=== PATIENT | male | born 1975 | race Two or more races ===

== ENCOUNTER 2025-01-05 09:10 | Day surgery (SDC) | payer MEDICAID, SELFPAY ==
[2025-01-02 08:56] VITALS: BMI 30.4
--- NOTE | 2025-01-02 09:10 | EKG_ITS ---
[facility] Test Date: 2025-01-02 Pat Name: EVENS HICKMAN Department: Room: - Gender: Male [employer]: : 1975 Requested By: Kevan Cline Order Number: [id number] Reading MD: Kevan Cline Measurements Intervals [place] Rate: 54 P: 59 [place]: 142 QRS: 59 QRSD: 92 T: 47 QT: 399 QTc: 378 Interpretive Statements SINUS BRADYCARDIA POSSIBLE LEFT ATRIAL ENLARGEMENT [-0.1mV P WAVE IN V1/V2] No previous ECG available for comparison /store/S0/[id number]/ecg/[id number].pdf
[2025-01-02 10:35] LABS: Basophils # (Auto) 0.1 Thou/mm3 (0.0-0.2); Basophils % (Auto) 1 % (0-2.5); Eosinophils # (Auto) 0.2 Thou/mm3 (0.0-0.5); Eosinophils % (Auto) 2 % (0-10); Hematocrit 44.1 % (41.0-53.0); Immature Granulocytes % (Auto) 1 % (0-0); Immature Granulocytes Auto 0.04 Thou/mm3 (0.00-0.00); Lymphocytes # (Auto) 1.9 Thou/mm3 (1.0-4.8); Lymphocytes % (Auto) 24 % (10-50); Mean Corpuscular Hemoglobin 29.6 pg (25.0-35.0); Mean Corpuscular Volume 87 fL (80-100); Monocytes # (Auto) 0.5 Thou/mm3 (0.0-0.8); Monocytes % (Auto) 6 % (0-12); Neutrophils # (Auto) 5.1 Thou/mm3 (1.8-7.7); Neutrophils % (Auto) 66 % (37-80); Nucleated Red Blood Cell % 0 /100 WBC (0); Platelet Count 266 Thou/mm3 (140-440); RDW Standard Deviation 40.8 fL (35.1-43.9); Red Blood Count 5.06 Miln/mm3 (4.50-5.90); White Blood Count 7.8 Thou/mm3 (3.8-10.6)
[2025-01-02 10:43] LABS: INR 0.9 (0.9-1.3); Partial Thromboplastin Time 26.5 Seconds (22.0-36.0); Prothrombin Time 10.3 Seconds (9.0-12.2)
[2025-01-02 10:59] LABS: Alanine Aminotransferase 19 U/L (10-49); Albumin, Serum 4.6 gm/dL (3.5-5.0); Albumin/Globulin Ratio 1.9 (1.2-2.2); Alkaline Phosphatase 97 U/L (46-116); Anion Gap 8 (7-16); Aspartate Amino Transferase 17 U/L (0-34); BUN/Creatinine Ratio 16 Ratio (12-20); Bilirubin,Total 0.7 mg/dL (0.3-1.2); Blood Urea Nitrogen 16 mg/dL (9-23); Carbon Dioxide 27.2 mMol/L (20.0-31.0); Chloride 104 mMol/L (98-107); Globulin 2.4 gm/dL (2.3-3.5); Glucose 106 mg/dL (74-106); Osmolality,Calculated 278 (275-295); Potassium 4.4 mMol/L (3.4-5.1); Sodium 139 mMol/L (136-145); eGFR > 60 See Note
--- NOTE | 2025-01-04 18:35 | ESHP_ITS ---
RE: EVENS HICKMAN : 1975 DATE OF ADMISSION: 01/05/2025 DATE OF SURGERY: 01/05/2025 HISTORY OF PRESENT ILLNESS: This patient was seen by me from the [facility]. He is a 49-year-old male who was seen because of lump over the left side of the back. The patient has had this for the past few years, but it is becoming painful and is tender to touch. The patient is otherwise in good health, but he does have hypertension. PAST SURGICAL HISTORY: The patient's past surgery consisted of none PHYSICAL EXAMINATION: GENERAL: Well-built, well-nourished male who appeared to be in his stated age and he was obese. He is about 17 inches tall, weighing 215 pounds with BMI of 30.5. VITAL SIGNS: Reveal temperature of 98.1, pulse 81, BP 163/76. HEENT: Head was normal. Eyes, ear, nose, throat were normal. Examination of the ears were normal. Neck normal. Throat normal. Thyroid normal. LUNGS: Revealed normal breath sounds on both sides. HEART: Sinus rhythm. BACK: Examination of his back on the left side and the lower area revealed a soft tissue mass measuring about 5 cm in diameter. This seems to be eloquent in the subcutaneous tissue and it is tender on palpation. IMPRESSION: 1. Soft tissue mass, left flank, possibly a lipoma. 2. Hypertension. COURSE OF ACTION: Advised the patient to undergo excision of this mass under sedation with monitored anesthesia in the hospital. The risks of the procedure including hematoma or wound infection of the suture line, etc., were explained to the patient and he is agreeable. DT: 17:45:56 TT: 18:22:00 Ref: [id number] - TID: [id number] TARIQ
[2025-01-05 09:43] VITALS: BP 166/95; PULSE 80; RESP 12; TEMP 37.1; O2SAT 98; BMI 30.2
[2025-01-05] MEDS: RINGERS LACTATED 1000 ML 1,000 ML 20 ML IV (09:50)
--- NOTE | 2025-01-05 10:20 | SUR.PREOP ---
Patient expressed gratitude for prayer before their procedure.
[2025-01-05 12:07] VITALS: BP 128/66; PULSE 74; RESP 16; TEMP 36.3; O2SAT 98
--- NOTE | 2025-01-05 12:07 | SUR.PHASEII ---
pt received from OR in recovery bay 4. pt awake and alert, breathing unlabored on room air. pt dressing to left back cdi. report received from Pedro Pablo Mccabe and Dr. Velazquez.
--- NOTE | 2025-01-05 12:12 | PD.SUROPNT ---
Date of Procedure 01/05/25 Pre Op Diagnosis Soft tissue mass lower back on the left side Post Op Diagnosis Same Procedure Excision of soft tissue mass Findings Patient was found to have a lobulated lipoma underneath the skin Procedure Description After the patient was brought to the operating room he was placed in prone position sedation was given by the anesthesiologist. Then the low back was washed with ChloraPrep solution draped in a sterile manner. Timeout was performed. Then injected 1% Xylocaine and sodium bicarbonate over this area and made incision for about 5 to 6 cm in length. Using Kimmy retractors I dissected the subcutaneous tissue the lobulated lipoma was removed. Bleeding points were controlled with cautery and subcutaneous tissue was closed with 3-0 chromic. Skin was closed with 4-0 Monocryl and dressing was applied with 4 x 4 gauze. Patient tolerated procedure well. Anesthesia MAC Pathology / specimen Other Estimated Blood Loss 20 Surgeon Lukas King MD Surgical Staff Operation Date: 01/05/25 11:45 Case Staff Anesthesiologist: Merrick Velazquez RN First Assistant: Marge Hester
[2025-01-05 12:15] VITALS: BP 126/67; PULSE 66; RESP 18; TEMP 36.3; O2SAT 95
[2025-01-05 12:20] VITALS: BP 131/69; PULSE 66; RESP 17; TEMP 36.3; O2SAT 95
[2025-01-05 12:25] VITALS: BP 134/73; PULSE 63; RESP 16; TEMP 36.2; O2SAT 95
[2025-01-05 12:40] VITALS: BP 134/76; PULSE 61; RESP 16; TEMP 36.2; O2SAT 98
--- NOTE | 2025-01-05 12:55 | SUR.PHASEII ---
pt awake and alert, breathing unlabored on room air. v/s stable. pt dressing to left back cdi. pt able to ambulate to wheelchair with steady gait. d/c instructions given with Eloisa Mariscal in room, all questions answered. pt d/c via wheelchair with all belongings.
== END 2025-01-05 12:55 | disposition home or self-care (01) ==
PROVIDERS: PCP Internal Medicine; Referring Provider Surgery; Visit Provider Surgery
PROC: (CPT 21931; principal; 2025-01-05 11:30)
DX: D17.1 Benign lipomatous neoplasm of skin and subcutaneous tissue of trunk (principal); Z01.810 Encounter for preprocedural cardiovascular examination
CPT/HCPCS: 21931; 36415; 80053; 85025; 85610; 85730; 93005; A4217; A4649; J1885; J2250; J2704; J3490; J7120